=== PATIENT | male | born 1945 | race Caucasian/White ===

== ENCOUNTER 2017-11-08 12:44 | Day surgery (SDC) | payer MEDICARE, BC ==
[~2017-11-08] VITALS: Ht 177.8 cm; Wt 112.4 kg
[~2017-11-08 12:44] MED LIST: CEPHALEXIN500 M1 PO; COUMADIN 6MG6 MG/TAB PO; LAMICTAL CD25 MG PO; LAMICTAL CD5 MG PO; NAPROSYN500 MG PO; NORCO 325 MG-51 TAB PO; TYLENOL 325MG325 MG PO; VESICARE10 MG PO; WELLBUTRIN XL300 M1; ZESTRIL 10MG10 MG PO
[2017-11-08 13:29] VITALS: BP 133/88; PULSE 77; TEMP 97.5
[2017-11-08] MEDS ORDERED: PRINIVIL10 MG PO (13:33)
[2017-11-08] MEDS ORDERED: MULTI VITAMINS1 TAB PO (13:33)
[2017-11-08] MEDS ORDERED: B COMPLEX #11 TAB PO (13:34)
[2017-11-08] MEDS ORDERED: TOPROL XL 25MG25 MG PO (13:36)
[2017-11-08 15:17] VITALS: BP 101/76; PULSE 71; TEMP 98.3
[2017-11-08 15:30] VITALS: BP 115/66; PULSE 65
[2017-11-08 15:45] VITALS: BP 132/74; PULSE 68
[2017-11-08 17:11] VITALS: BP 93/70; PULSE 65
== END 2017-11-08 16:00 | disposition home or self-care (01) ==
LOC: SDCO 12:44
DX: Z12.11 Encounter for screening for malignant neoplasm of colon (principal); K57.30 Diverticulosis of large intestine without perforation or abscess without bleeding; K64.0 First degree hemorrhoids; I10 Essential (primary) hypertension; F32.9 Major depressive disorder, single episode, unspecified; Z95.0 Presence of cardiac pacemaker; Z90.79 Acquired absence of other genital organ(s); Z79.01 Long term (current) use of anticoagulants; Z85.46 Personal history of malignant neoplasm of prostate; Z86.718 Personal history of other venous thrombosis and embolism
CPT/HCPCS: OP; J2704; J7030

== ENCOUNTER 2018-03-27 03:36 | Emergency (ER) | payer MEDICARE, BC ==
[~2018-03-27] VITALS: Ht 177.8 cm; Wt 105.5 kg
[~2018-03-27 03:36] MED LIST changes: +B COMPLEX #11 TAB PO; +MULTI VITAMINS1 TAB PO; +PRINIVIL10 MG PO; +TOPROL XL 25MG25 MG PO
[2018-03-27 04:10] LABS: BASO # 0.1 (0.0-0.2); BASO % 0.4 % (0.0-2.0); EOS # 0.5 (0.0-0.7); EOS % 3.5 % (0-4.0); GRAN # 10.6 (1.4-6.5); GRAN % 79.9 % (42.2-75.2); HEMATOCRIT 40.1 % (42.0-52.0); LYMPH # 1.3 (1.2-3.4); LYMPH % 10.1 % (20.0-51.0); MEAN CELL VOLUME 93 fl (80.0-100.0); MEAN CORPUSCULAR HEMOGLOBIN 32 pg (27.0-31.0); MEAN CORPUSCULAR HGB CONC 35 g/dl (33.0-37.0); MEAN PLATELET VOLUME 11.1 fl (7.4-10.4); MONO # 0.8 (0.1-0.6); MONO % 5.7 % (1.7-9.3); PLATELET COUNT 147 K/mm3 (130-400); RED BLOOD COUNT 4.33 M/mm3 (4.20-5.60); REDCELL DISTRIBUTION WIDTH-CV 11.8 % (11.5-14.5)
[2018-03-27] MEDS ORDERED: LAMICTAL 25MG T25 MG PO (04:16)
[2018-03-27] MEDS ORDERED: COUMADIN 6MG6 MG/TAB PO (04:17)
[2018-03-27] MEDS ORDERED: COUMADIN 5MG5 MG/TAB PO (04:17)
[2018-03-27 04:28] LABS: COLLECTION METHOD CLEAN CATCH
[2018-03-27 04:34] LABS: MUCOUS Present /lpf; PH 5 (5-8); SQUAMOUS EPITHELIAL None Seen /hpf; URINE APPEARANCE Clear; URINE BACTERIA None Seen /hpf; URINE BILIRUBIN Negative (NEGATIVE); URINE BLOOD Negative (NEGATIVE); URINE COLOR Yellow; URINE GLUCOSE Negative (NEGATIVE); URINE KETONE Negative (NEGATIVE); URINE LEUKOCYTE ESTERASE Negative (NEGATIVE); URINE NITRATE Negative (NEGATIVE); URINE PROTEIN(semi-quant) Negative (NEGATIVE); URINE RBC 0-2 /hpf; URINE UROBILINOGEN Negative (NEGATIVE)
[2018-03-27 04:35] LABS: ALBUMIN 4.2 gm/dL (3.5-5.0); BILIRUBIN,TOTAL 0.7 mg/dL (0.0-1.0); CALCIUM 9.4 mg/dL (8.4-10.2); CREATININE, serum 1.16 mg/dL (0.66-1.25); POTASSIUM 3.8 mmol/L (3.4-5.0); TOTAL PROTEIN 7.6 gm/dL (6.4-8.2)
[2018-03-27 04:56] LABS: INR 2.3 (0.8-3.0); PROTHROMBIN TIME 26.5 SECONDS (9.7-12.8)
[2018-03-27 05:22] VITALS: BP 117/71; PULSE 71; TEMP 100.2
== END 2018-03-27 05:30 | disposition home or self-care (01) ==
LOC: COL.ER 03:36
PROVIDERS: Emergency Medicine
DX: R50.9 Fever, unspecified (principal); I10 Essential (primary) hypertension; Z79.01 Long term (current) use of anticoagulants; Z86.718 Personal history of other venous thrombosis and embolism
CPT/HCPCS: J0696; J7030

== ENCOUNTER 2018-05-30 17:14 | Emergency (ER) | payer MEDICARE, BC ==
[~2018-05-30] VITALS: Ht 177.8 cm; Wt 106.8 kg
[~2018-05-30 17:14] MED LIST changes: +COUMADIN 5MG5 MG/TAB PO; +LAMICTAL 25MG T25 MG PO
[2018-05-30 17:16] VITALS: TEMP 97.9
[2018-05-30 17:48] LABS: BASO # 0.1 (0.0-0.2); BASO % 0.9 % (0.0-2.0); EOS # 0.6 (0.0-0.7); EOS % 10.3 % (0-4.0); GRAN % 50.8 % (42.2-75.2); HEMATOCRIT 39.1 % (42.0-52.0); HEMOGLOBIN 13.9 g/dl (13.5-18.0); LYMPH # 1.7 (1.2-3.4); LYMPH % 29.5 % (20.0-51.0); MEAN CELL VOLUME 90 fl (80.0-100.0); MEAN CORPUSCULAR HEMOGLOBIN 32 pg (27.0-31.0); MEAN CORPUSCULAR HGB CONC 36 g/dl (33.0-37.0); MEAN PLATELET VOLUME 10.6 fl (7.4-10.4); MONO # 0.5 (0.1-0.6); MONO % 8.2 % (1.7-9.3); PLATELET COUNT 144 K/mm3 (130-400); RED BLOOD COUNT 4.37 M/mm3 (4.20-5.60); REDCELL DISTRIBUTION WIDTH-CV 11.8 % (11.5-14.5)
[2018-05-30 17:53] LABS: PROTHROMBIN TIME 23.3 SECONDS (9.7-12.8)
[2018-05-30 18:01] LABS: ALANINE AMINOTRANSFERASE 38 U/L (21-72); ALBUMIN 4.2 gm/dL (3.5-5.0); ALKALINE PHOSPHATASE 94 U/L (50-136); ANION GAP 10 mmol/L (7-16); AST,SGOT 36 U/L (15-37); BILIRUBIN,TOTAL 0.4 mg/dL (0.0-1.0); BLOOD UREA NITROGEN 24 mg/dL (9-20); C-REACTIVE PROTEIN < 0.5 mg/dL (0.0-0.9); CALCIUM 9.1 mg/dL (8.4-10.2); CARBON DIOXIDE 25 mmol/L (22-30); CHLORIDE 102 mmol/L (98-107); CREATININE, serum 0.99 mg/dL (0.66-1.25); GLUCOSE 103 mg/dL (74-106); SODIUM 137 mmol/L (137-145)
[2018-05-30 19:21] VITALS: BP 138/67; PULSE 71
== END 2018-05-30 19:21 | disposition home or self-care (01) ==
LOC: COL.ER 17:14
PROVIDERS: Emergency Medicine
DX: M79.604 Pain in right leg (principal); R25.2 Cramp and spasm; I10 Essential (primary) hypertension; Z86.718 Personal history of other venous thrombosis and embolism; Z79.01 Long term (current) use of anticoagulants

== ENCOUNTER 2018-11-09 15:01 | Observation (INO) | payer MEDICARE, BC ==
[~2018-11-09] VITALS: Ht 177.8 cm; Wt 119.5 kg
[2018-11-09 15:55] LABS: ALBUMIN 4.4 gm/dL (3.5-5.0); BILIRUBIN,TOTAL 0.7 mg/dL (0.0-1.0); CALCIUM 9.6 mg/dL (8.4-10.2); CREATININE, serum 0.99 mg/dL (0.66-1.25); POTASSIUM 4.2 mmol/L (3.4-5.0); TOTAL PROTEIN 7.5 gm/dL (6.4-8.2)
[2018-11-09 15:59] LABS: BASO % 0.2 % (0.0-2.0); EOS # 0.1 (0.0-0.7); EOS % 0.6 % (0-4.0); GRAN # 7.4 (1.4-6.5); GRAN % 80.3 % (42.2-75.2); HEMATOCRIT 43.5 % (42.0-52.0); HEMOGLOBIN 15.3 g/dl (13.5-18.0); LYMPH # 1.3 (1.2-3.4); MEAN CELL VOLUME 93 fl (80.0-100.0); MEAN CORPUSCULAR HEMOGLOBIN 33 pg (27.0-31.0); MEAN CORPUSCULAR HGB CONC 35 g/dl (33.0-37.0); MEAN PLATELET VOLUME 10.6 fl (7.4-10.4); MONO # 0.4 (0.1-0.6); MONO % 4.5 % (1.7-9.3); PLATELET COUNT 191 K/mm3 (130-400); REDCELL DISTRIBUTION WIDTH-CV 11.9 % (11.5-14.5)
[2018-11-09 17:01] LABS: PROTHROMBIN TIME 22.9 SECONDS (9.7-12.8)
[2018-11-09 20:06] VITALS: BP 135/90; PULSE 66; TEMP 97.4
[2018-11-09] MEDS ORDERED: COUMADIN 6MG6 MG/TAB PO (20:52)
--- NOTE | 2018-11-09 21:05 | NUR ---
PT ARRIVED FROM ER VIA GURNEY. PT HAD AN EPISODE OF VOMITING. PT NOW IS RESTING QUIETLY IN BED WITH NO N/V AT THIS TIME. PT ADVISES THAT LEFT LEG HAS HAD A DVT AND HE IS SUPPOSE TO WEAR A RADHA HOSE ON THAT LEG (40HG STRENGTH) , THE INTER HEEL THE SKIN IS CRUST AND PURPLISH IN COLOR, ALSO RIGHT WREN HAS AN ABRASION THAT IS SCABBED OVER FROM A FALL THAT HE HAD ABOUT A WEEK AGO. PT IS A/O X4, ADVISED PT THAT BED ALARM IS ON AND THAT HE NEEDS TO CALL FOR ASSISTANCE WHEN GETTING UP. NO FURTHER NEEDS CALL LIGHT WITHIN REACH.
[2018-11-10] VITALS (7 sets, daily range): BP systolic 96–136; BP diastolic 64–86; PULSE 60–76; TEMP 97.5–98.3
--- NOTE | 2018-11-10 01:00 | NUR ---
JERRY BRAVO ADVISED TO GIVE COUMADIN 5 MG, ALSO TO HOLD OFF ON WELLBUTRIN DUE TO PT'S NAUSEA. ALSO, TO HOLD OFF ON METOPROLOL. PT RESTING IN BED WITH HOB ELEVATED, CALL LIGHT WITHIN REACH.
[2018-11-10 05:59] LABS: BASO % 0.3 % (0.0-2.0); EOS # 0.1 (0.0-0.7); EOS % 1.4 % (0-4.0); GRAN # 4.7 (1.4-6.5); GRAN % 63.2 % (42.2-75.2); LYMPH # 1.9 (1.2-3.4); LYMPH % 26.1 % (20.0-51.0); MEAN CELL VOLUME 92 fl (80.0-100.0); MEAN CORPUSCULAR HEMOGLOBIN 32 pg (27.0-31.0); MEAN CORPUSCULAR HGB CONC 35 g/dl (33.0-37.0); MEAN PLATELET VOLUME 10.6 fl (7.4-10.4); MONO # 0.7 (0.1-0.6); MONO % 8.9 % (1.7-9.3); PLATELET COUNT 163 K/mm3 (130-400); RED BLOOD COUNT 4.02 M/mm3 (4.20-5.60); REDCELL DISTRIBUTION WIDTH-CV 11.9 % (11.5-14.5)
[2018-11-10 06:04] LABS: INR 2.2 (0.8-3.0); PROTHROMBIN TIME 25.1 SECONDS (9.7-12.8)
[2018-11-10 06:15] LABS: CALCIUM 8.4 mg/dL (8.4-10.2); CREATININE, serum 0.87 mg/dL (0.66-1.25); POTASSIUM 3.7 mmol/L (3.4-5.0)
--- NOTE | 2018-11-10 07:00 | NUR ---
Report received from JOSE C Skinner. Pt sleeping, will continue to [facility].
--- NOTE | 2018-11-10 07:30 | NUR ---
GAVE REPORT TO Daisy WOODALL.
--- NOTE | 2018-11-10 10:12 | NUR ---
Assessment charted. Had to awaken patinet. Per patient he usually sleeps until noon but agreeable to assessment and taking meds. BP meds held d/t low BP this am. Denies pain, unable to turn head to the right without having severe vertigo leading to nausea. Discussed BPPV and visit from PT. Will continue to monitor.
[2018-11-10 13:50] LABS: COLLECTION METHOD CLEAN CATCH
[2018-11-10 14:09] LABS: AMORPHOUS CRYSTAL Present /uL; MUCOUS Present /lpf; PH 5 (5-8); SQUAMOUS EPITHELIAL 0-2 /hpf; URINE APPEARANCE Turbid; URINE BACTERIA None Seen /hpf; URINE BILIRUBIN Negative (NEGATIVE); URINE BLOOD Negative (NEGATIVE); URINE COLOR Amber; URINE GLUCOSE Negative (NEGATIVE); URINE KETONE Negative (NEGATIVE); URINE LEUKOCYTE ESTERASE Negative (NEGATIVE); URINE NITRATE Negative (NEGATIVE); URINE PROTEIN(semi-quant) Negative (NEGATIVE); URINE RBC 0-2 /hpf; URINE UROBILINOGEN Negative (NEGATIVE)
--- NOTE | 2018-11-10 16:27 | NUR ---
RANDY and SW student met with the patient to discuss discharge plan. The patient lives in [place] with his friend, Sharmaine. He reports independence with ADLs and does not use any DME. The patient's PCP is Dr. Eleuterio Madden and he receives his medications at the [facility]. He reports no difficulties obtaining his meds. The patient does not have advanced directives and he was not interested in completing them at this time. The patient plans to return home upon discharge. No additional needs at this time.
--- NOTE | 2018-11-10 18:27 | NUR ---
Pt has slept this afternoon after working with PT to resolve BPPV today. attempted several times and each time pt had bouts of vertigo with subsequent nausea and vomiting. PRN nausea meds provided. Pt feels fine when at rest, ate supper well. Denies needs. Will give bedside shift report to nightshift nurse who will resume care.
--- NOTE | 2018-11-10 20:16 | NUR ---
PT IN BED WITH FEMALE FRIEND BY SIDE, NO C/O PAIN OR DISCOMFORT AT THIS TIME. PT ADVISED HAD N/V EARLIER BUT NOT SINCE THEN. NO NEEDS AT THIS TIME. CALL LIGHT WITHIN REACH.
--- NOTE | 2018-11-11 00:41 | NUR ---
PT AWAKE IN BED WITH HOB AT 30 DEGREE ANGLE. STILL HIS FEMALE FRIEND BY SIDE. PT ADVISED THAT HE STILL FEELS A LITTLE NAUSEA AND THAT HE DOES NOT FEEL RIGHT TO GO HOME. PT ADVISES THAT HE IS A LITTLE DISAPPOINTED, BUT REALIZES THAT HE NEEDS TO BE HERE. PT ADVISED THAT 0200 NEURO CHECKS NOT TO WAKE HIM. PT DENIES PAIN OR DISCOMFORT AND NO NEEDS AT THIS TIME, CALL LIGHT WITH IN REACH.
[2018-11-11 00:43] VITALS: BP 109/65; PULSE 66; TEMP 98.3
[2018-11-11 04:53] VITALS: BP 131/73; PULSE 69; TEMP 97.9
[2018-11-11 07:54] VITALS: BP 137/82; PULSE 65; TEMP 98.3
[2018-11-11 07:54] LABS: BASO % 0.5 % (0.0-2.0); EOS # 0.3 (0.0-0.7); EOS % 4.8 % (0-4.0); GRAN # 2.8 (1.4-6.5); GRAN % 48.2 % (42.2-75.2); HEMOGLOBIN 12.5 g/dl (13.5-18.0); LYMPH # 2.3 (1.2-3.4); LYMPH % 38.6 % (20.0-51.0); MEAN CELL VOLUME 92 fl (80.0-100.0); MEAN CORPUSCULAR HEMOGLOBIN 32 pg (27.0-31.0); MEAN CORPUSCULAR HGB CONC 34 g/dl (33.0-37.0); MEAN PLATELET VOLUME 10.2 fl (7.4-10.4); MONO # 0.5 (0.1-0.6); MONO % 7.7 % (1.7-9.3); PLATELET COUNT 146 K/mm3 (130-400); RED BLOOD COUNT 3.96 M/mm3 (4.20-5.60); REDCELL DISTRIBUTION WIDTH-CV 11.9 % (11.5-14.5)
[2018-11-11 08:02] LABS: CALCIUM 8.8 mg/dL (8.4-10.2); CREATININE, serum 0.95 mg/dL (0.66-1.25); POTASSIUM 3.6 mmol/L (3.4-5.0)
[2018-11-11 08:03] LABS: HEMATOCRIT 36.6 % (42.0-52.0)
--- NOTE | 2018-11-11 09:45 | NUR ---
Pt assessment complete. Pt laying in bed upon entry, he arouses to voice, he is A/O x3. His breathing is even and unlabored on RA. Pt denies SOB. No pain at this time. Pt denies dizziness and nausea at this time. He reports he feels 99% better. Neuro check intact. No needs at this time. Call light within reach.
[2018-11-11] MEDS ORDERED: ANTIVERT 25MG25 MG PO (11:29)
[2018-11-11] MEDS ORDERED: ZOFRAN 4MG T4 MG/TAB PO (11:30)
[2018-11-11] MEDS ORDERED: VALIUM 5MG T5 MG/TAB PO (11:30)
--- NOTE | 2018-11-11 12:11 | NUR ---
Discharge instructions reviewed with patient, all questions answered at this time. IV to RAC dc'd, catheter tip intact.
--- NOTE | 2018-11-11 12:38 | NUR ---
Pt walked out of facility at this time.
== END 2018-11-11 12:59 | disposition home or self-care (01) ==
LOC: COL.ER 15:01 → MEDICAL 17:37 → EDBEDREQ 19:16 → MEDICAL 11-11 12:59
PROVIDERS: Emergency Medicine; Nurse Practitioner Family; ADMIT Internal Medicine
DX: H81.10 Benign paroxysmal vertigo, unspecified ear (principal); I48.92 Unspecified atrial flutter; Z79.01 Long term (current) use of anticoagulants; R11.2 Nausea with vomiting, unspecified; I10 Essential (primary) hypertension; R00.1 Bradycardia, unspecified; Z95.0 Presence of cardiac pacemaker; Z86.718 Personal history of other venous thrombosis and embolism; Z80.1 Family history of malignant neoplasm of trachea, bronchus and lung
CPT/HCPCS: G0378; J2060; J2405; J7030

== ENCOUNTER → 2019-07-13 | Outpatient (CLI) | payer MEDICARE, BC ==
[~2019-07-13] MED LIST changes: +ANTIVERT 25MG25 MG PO; -TOPROL XL 25MG25 MG PO; +TOPROL XL100 MG PO; +VALIUM 5MG T5 MG/TAB PO; -WELLBUTRIN XL300 M1; +WELLBUTRIN XL300 M1 PO; +ZOFRAN 4MG T4 MG/TAB PO
== END ==
LOC: COL.VAS 12:25
DX: I82.409 Acute embolism and thrombosis of unspecified deep veins of unspecified lower extremity (principal); M79.89 Other specified soft tissue disorders

== ENCOUNTER → 2019-07-19 | Outpatient (CLI) | payer MEDICARE, BC | LOC: LIGHT 15:06 | DX: Z76.89 Persons encountering health services in other specified circumstances (principal); E66.01 Morbid (severe) obesity due to excess calories; I10 Essential (primary) hypertension; Z71.3 Dietary counseling and surveillance ==

== ENCOUNTER → 2019-07-24 | Outpatient (CLI) | payer MEDICARE, BC | LOC: LIGHT 10:06 | DX: I10 Essential (primary) hypertension (principal); F32.9 Major depressive disorder, single episode, unspecified; E66.9 Obesity, unspecified; Z71.3 Dietary counseling and surveillance ==

== ENCOUNTER → 2019-08-21 | Outpatient (CLI) | payer MEDICARE, BC ==
[~2019-08-21] VITALS: Ht 176.5 cm; Wt 117.9 kg
[2019-08-21 15:08] VITALS: BP 130/70; PULSE 72
== END ==
LOC: LIGHT 15:03
DX: I10 Essential (primary) hypertension (principal); F32.9 Major depressive disorder, single episode, unspecified; I48.91 Unspecified atrial fibrillation; E66.9 Obesity, unspecified; Z68.37 Body mass index [BMI] 37.0-37.9, adult; Z71.3 Dietary counseling and surveillance
CPT/HCPCS: G0463

== ENCOUNTER → 2019-11-20 | Outpatient (CLI) | payer MEDICARE, BC ==
[~2019-11-20] VITALS: Ht 176.5 cm; Wt 117.0 kg
[2019-11-20 15:10] VITALS: BP 126/66; PULSE 76
== END ==
LOC: LIGHT 15:04
DX: Z68.37 Body mass index [BMI] 37.0-37.9, adult (principal); I10 Essential (primary) hypertension; I48.91 Unspecified atrial fibrillation; Z95.0 Presence of cardiac pacemaker
CPT/HCPCS: G0463

== ENCOUNTER → 2021-01-09 | Outpatient (CLI) | payer MEDICARE, BC | LOC: COL.RAD 07:56 | DX: Z01.812 Encounter for preprocedural laboratory examination (principal); I86.2 Pelvic varices; K55.1 Chronic vascular disorders of intestine | CPT/HCPCS: Q9967 ==